=== PATIENT | male | born 1995 | race Caucasian/White ===

== ENCOUNTER 2020-12-10 22:02 | Emergency (ER) | payer OTHER | END 2020-12-10 23:09 | LOC: FER 22:02 | DX: S33.5XXA Sprain of ligaments of lumbar spine, initial encounter (principal); V29.9XXA Motorcycle rider (driver) (passenger) injured in unspecified traffic accident, initial encounter; Y92.410 Unspecified street and highway as the place of occurrence of the external cause | CPT/HCPCS: 72100 ==